=== PATIENT | female | born 1995 | race African-American/Black ===

== ENCOUNTER 2017-04-08 16:15 | Emergency (ER) | payer SELFPAY ==
[~2017-04-08] VITALS: Ht 167.6 cm; Wt 127.0 kg
[2017-04-08 16:23] VITALS: BP 131/71
[2017-04-08] MEDS ORDERED: IV NORMAL SALINE 1000ML BAG 1,000 ML IV ONE (16:45)
[2017-04-08] MEDS ORDERED: KETOROLAC 30 MG/ML INJ. IV ONE (16:45)
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
--- NOTE | 2017-04-09 09:57 | RAD ---
EXAM: Chest 2 views. HISTORY: Left chest pain. COMPARISON: None. FINDINGS: Frontal and lateral views of the chest are obtained. There are no confluent infiltrates. There is no pneumothorax or pleural effusion. The heart is not enlarged. IMPRESSION: 1. No confluent infiltrates.
== END 2017-04-08 19:10 | disposition home or self-care (01) ==
LOC: ER 16:15
DX: R07.89 Other chest pain (principal); R51 Headache; F12.10 Cannabis abuse, uncomplicated
CPT/HCPCS: 71020; 96361; 96374; 99284; J1885; J7030